=== PATIENT | male | born 1950 | race Caucasian/White ===

== ENCOUNTER → 2019-10-01 | Outpatient (CLI) | payer MEDICARE, OTHER | LOC: COL.RAD 09:35 | DX: M25.552 Pain in left hip (principal) | CPT/HCPCS: J3301; Q9967 ==

== ENCOUNTER 2021-10-29 09:15 | Inpatient (IN) | payer MEDICARE, OTHER ==
[~2021-10-29] VITALS: Ht 170.2 cm; Wt 81.4 kg
[~2021-10-29 09:15] MED LIST: PRINIVIL40 MG PO
[2021-11-23] VITALS (13 sets, daily range): BP systolic 94–135; BP diastolic 46–67; PULSE 67–89; TEMP 97.5–98.2
[2021-11-23 06:58] LABS: HEMOGLOBIN 14.4 g/dl (13.5-18.0); MEAN CELL VOLUME 84 fl (80.0-100.0); MEAN CORPUSCULAR HEMOGLOBIN 28 pg (27-31); MEAN CORPUSCULAR HGB CONC 34 g/dl (33.0-37.0); MEAN PLATELET VOLUME 10.6 fl (7.4-10.4); PLATELET COUNT 354 K/mm3 (130-400); RED BLOOD COUNT 5.12 M/mm3 (4.20-5.60); REDCELL DISTRIBUTION WIDTH-CV 13.4 % (11.5-14.5)
[2021-11-23 07:25] LABS: CALCIUM 9.3 mg/dL (8.4-10.2); CREATININE, serum 0.99 mg/dL (0.72-1.25); POTASSIUM 4.3 mmol/L (3.5-4.5)
--- NOTE | 2021-11-23 12:00 | NUR ---
Patient received post op from [place]. Patient to room 329. He is sleepy, but arousable. Robotic lap site x6. site edges well approximated. [place] to DD with blood tinged output. IVF per orders. Will let him rest and monitor closely.
--- NOTE | 2021-11-23 14:45 | NUR ---
made aware of patient soft Bp & Low urine output. Fluid bolus ordered and given per orders. Patient has been sleepy post op. His supportive has been at bedside.
--- NOTE | 2021-11-23 17:37 | NUR ---
Patient sitting up in bed, he is working on a clear liquid tray. He is much more awake. Blood pressures improved after IVF. Urine output remains marginal and dark in color. He has ambulated the halls and done well. His as been at his side. Will conitinue to monitor.
--- NOTE | 2021-11-23 19:08 | NUR ---
Patient resting in bed. Urine clearing & output increasing. Bedside report to Tirso
--- NOTE | 2021-11-23 20:00 | NUR ---
PT RESTING IN BED. DENIES PAIN. ROBLES DRAINING FREELY WITH BLOOD TINGED CLEAR URINE. CALL LIGHT IN REACH.
[2021-11-24 04:43] VITALS: BP 116/54; PULSE 70; TEMP 97.8
[2021-11-24 06:10] LABS: HEMATOCRIT 33.5 % (42.0-52.0)
[2021-11-24 06:14] LABS: HEMOGLOBIN 11.1 g/dl (13.5-18.0)
[2021-11-24 06:35] LABS: CALCIUM 8.2 mg/dL (8.4-10.2); CREATININE, serum 1.04 mg/dL (0.72-1.25); POTASSIUM 4.1 mmol/L (3.5-4.5)
[2021-11-24 08:00] VITALS: BP 114/49; PULSE 81; TEMP 97.8
--- NOTE | 2021-11-24 11:20 | NUR ---
Initial visit; Patient thanked Cad Designer for looking in on him and offering God's blessings and to keep him in her prayers.
[2021-11-24 11:22] VITALS: BP 123/55; PULSE 67; TEMP 98.3
--- NOTE | 2021-11-24 12:00 | NUR ---
PATIENT'S IV REMOVED, CATHETER INTACT. ROBLES CATHETER CHANGED OVER TO [place] AND PATIENT GIVEN THOROUGH INSTRUCTIONS ON HOW TO CARE FOR IT AT HOME. DISCHARGE INSTRUCTIONS REVIEWED WITH PATIENT AND PATIENT VERBALIZED UNDERSTANDING. NO FURTHER QUESTIONS OR CONCERNS AT THIS TIME. PATIENT TAKEN OUT VIA WHEELCHAIR WITH BY
== END 2021-11-24 12:00 | disposition home or self-care (01) | DRG 708 ==
LOC: INPTSU 11-23 05:34 → SURG 11-23 07:30
PROVIDERS: Nurse Anesthetist, Certified Registered; ADMIT Urology
PROC: 07BC4ZZ Excision of Pelvis Lymphatic, Percutaneous Endoscopic Approach (ICD-10-PCS; 2021-11-23)
PROC: 8E0W4CZ Robotic Assisted Procedure of Trunk Region, Percutaneous Endoscopic Approach (ICD-10-PCS; 2021-11-23)
PROC: 0VT04ZZ Resection of Prostate, Percutaneous Endoscopic Approach (ICD-10-PCS; principal; 2021-11-23 07:30)
DX: C61 Malignant neoplasm of prostate (principal)
CPT/HCPCS: A4314; A9284; J0690; J1100; J1885; J2250; J2370; J2405; J2704; J3010; J7030; J7050; J7120

== ENCOUNTER 2022-01-16 08:29 | Inpatient (IN) | payer MEDICARE, OTHER ==
[~2022-01-16] VITALS: Ht 170.2 cm; Wt 77.5 kg
[2022-05-01] VITALS (12 sets, daily range): BP systolic 103–149; BP diastolic 51–70; PULSE 59–89; TEMP 97.5–98.4
[2022-05-01 06:54] LABS: CALCIUM 9.7 mg/dL (8.4-10.2); CREATININE, serum 1.25 mg/dL (0.72-1.25); POTASSIUM 4.1 mmol/L (3.5-4.5)
[2022-05-01 07:03] LABS: BASO % 0.5 % (0.0-2.0); EOS # 0.2 K/mm3 (0.0-0.7); EOS % 2.2 % (0.0-4.0); GRAN % 64.9 % (42.2-75.2); HEMATOCRIT 42.4 % (42.0-52.0); HEMOGLOBIN 13.3 g/dl (13.5-18.0); LYMPH # 1.5 K/mm3 (1.2-3.4); LYMPH % 19.7 % (20.0-51.0); MEAN CELL VOLUME 87 fl (80.0-100.0); MEAN CORPUSCULAR HEMOGLOBIN 27 pg (27-31); MEAN CORPUSCULAR HGB CONC 31 g/dl (33.0-37.0); MEAN PLATELET VOLUME 10.7 fl (7.4-10.4); MONO # 0.9 K/mm3 (0.1-0.6); MONO % 12.3 % (1.7-9.3); PLATELET COUNT 369 K/mm3 (130-400); RED BLOOD COUNT 4.85 M/mm3 (4.20-5.60); REDCELL DISTRIBUTION WIDTH-CV 14.7 % (11.5-14.5)
--- NOTE | 2022-05-01 18:06 | NUR ---
PT ALERT AND ORIENTED X4 , WAS DROWSY WHEN PT ARRIVED TO HIS ROOM, HAS 4 ABDOMINAL LAP SITES AND ONE LOW TRANSVERSE LARGE INCISION CLOSED WITH GLUED CLOSURE, WAS GIVEN MORPHINE ONCE WITH LOWER ABDOMINAL PAIN, CLEAR LIQUIDS MAINTAINED, INSTRUCTED TO HAVE NO STRAWS AND NO CARBONATED BEVERAGES.
[2022-05-02 03:33] VITALS: BP 114/56; PULSE 74; TEMP 97.9
[2022-05-02 05:49] LABS: HEMATOCRIT 37.7 % (42.0-52.0)
[2022-05-02 06:07] LABS: CREATININE, serum 1.09 mg/dL (0.72-1.25); MAGNESIUM 1.9 mg/dL (1.6-2.6); PHOSPHOROUS 2.4 mg/dL (2.3-4.7); POTASSIUM 4.4 mmol/L (3.5-4.5)
--- NOTE | 2022-05-02 08:00 | NUR ---
Patient laying in bed, A&Ox4. VSS. IV CDI. Denies pain and discomfort. ABD lap sites CDI. Diet advanced to low fiber, will continue to assess. Call light within reach
[2022-05-02 08:10] VITALS: BP 131/56; PULSE 69; TEMP 98.2
--- NOTE | 2022-05-02 09:25 | NUR ---
SW met with the patient to discuss discharge plan. The patient lives in [place] with his , Shannen (ph#[phone]). He reports independence with ADLs and does not have any DME. The patient's PCP is Dr. Leger in [place] and he receives his medications from [facility]. The patient does not have a DPOA-HC and he was not interested in completing one at this time. The patient plans to return home with his upon discharge. No additional needs at this time. *Discharge plan: home with *
--- NOTE | 2022-05-02 10:05 | NUR ---
Initial visit; Patient thanked [employer] Operator for looking in on him and offering God's blessings and a prayer of thanksgiving for his improved health.
[2022-05-02 11:28] VITALS: BP 128/52; PULSE 71; TEMP 98.4
[2022-05-02 15:17] VITALS: BP 111/53; PULSE 65; TEMP 98.5
[2022-05-02] MEDS ORDERED: NORCO 325 MG-51 TAB PO (16:54)
--- NOTE | 2022-05-02 17:30 | NUR ---
Discharge paperwork reviewed with the patient and family at the bedside. Patient verbalzied an understanding to follow doctors orders. IV removed, tip intact. Patient ambulated independently to awaiting vehicle. No further needs expressed.
== END 2022-05-02 17:30 | disposition home or self-care (01) | DRG 828 ==
LOC: INPTSU 05-01 05:28 → SURG 05-01 07:30
PROVIDERS: ADMIT Surgery
PROC: 8E0W4CZ Robotic Assisted Procedure of Trunk Region, Percutaneous Endoscopic Approach (ICD-10-PCS; 2022-05-01)
PROC: 0DTF4ZZ Resection of Right Large Intestine, Percutaneous Endoscopic Approach (ICD-10-PCS; principal; 2022-05-01 07:30)
DX: C7A.8 Other malignant neuroendocrine tumors (principal); I10 Essential (primary) hypertension; Z85.46 Personal history of malignant neoplasm of prostate; Z96.649 Presence of unspecified artificial hip joint
CPT/HCPCS: A4314; A9284; J0690; J1100; J1650; J2250; J2270; J2370; J2405; J2704; J2795; J7120

== ENCOUNTER 2024-06-04 10:19 | Day surgery (SDC) | payer MEDICARE, OTHER ==
[~2024-06-04] VITALS: Ht 170.2 cm; Wt 75.3 kg
[~2024-06-04 10:19] MED LIST changes: +LR 1,000 ML IV SCH; +NORCO 325 MG-51 TAB PO; +Ondansetron 4 MG/2 ML VIAL IV PRN
[2024-06-04 12:07] VITALS: BP 113/72; PULSE 63; TEMP 97.9
[2024-06-04] MEDS ORDERED: Lidocaine PF 2% (20 MG/ML) 5 ML VIAL ONE (12:10)
[2024-06-04 12:37] VITALS: BP 100/60; PULSE 64; TEMP 97.5
[2024-06-04 12:50] VITALS: BP 104/66; PULSE 68
[2024-06-04 13:05] VITALS: BP 108/71; PULSE 60
[2024-06-04 13:20] VITALS: BP 128/73; PULSE 60
--- NOTE | 2024-06-04 13:35 | NUR ---
1237 RETURNS TO ROOM 8 PER CART. AWAKE, ALERT. RESP UNLABORED. AMBULATES TO RECLINER WITH STANDBY ASSIST. DENIES NAUSEA OR ABD PAIN. VITAL SIGNS OBTAINED. CALL LIGHT AT SIDE. IN ROOM 1250 TOLERATES PO SODA WITHOUT NAUSEA 1305 DISCHARGE INSTRUCTIONS REVIEWED. PATIENT VERBALIZES UNDERSTANDING. COPY PROVIDED IN DISCHARGE FOLDER 3772 DRESSES SELF WHILE AWAITING ARRIVAL OF DR Jatinder ROCHA HERE TO VISIT WITH PATIENT
== END 2024-06-04 13:35 | disposition home or self-care (01) ==
LOC: SDCO 10:19
DX: Z12.11 Encounter for screening for malignant neoplasm of colon (principal); K63.89 Other specified diseases of intestine; I10 Essential (primary) hypertension; K57.30 Diverticulosis of large intestine without perforation or abscess without bleeding; Z98.0 Intestinal bypass and anastomosis status; Z79.899 Other long term (current) drug therapy; Z86.010 Personal history of colon polyps; Z85.068 Personal history of other malignant neoplasm of small intestine; Z85.46 Personal history of malignant neoplasm of prostate
CPT/HCPCS: J2704; J7120